=== PATIENT | male | born 1960 | race Caucasian/White ===

== ENCOUNTER 2021-09-02 12:40 | Emergency (ER) | payer OTHER ==
[2021-09-02 14:18] LABS: HEMOGLOBIN 14.7 gm/dl (14.0-17.5); RED BLOOD COUNT 4.73 M/UL (4.20-5.50); WHITE BLOOD COUNT 8.7 K/UL (4.5-11.0)
[2021-09-02 14:42] LABS: BUN/CREATININE RATIO 10 (0-10)
[2021-09-02] MEDS ORDERED: ONDANSETRON ODT4 MG SL (17:32)
== END 2021-09-02 17:45 | disposition home or self-care (01) ==
LOC: ER1 12:40
PROVIDERS: Physician Assistant
DX: K42.9 Umbilical hernia without obstruction or gangrene (principal); E78.5 Hyperlipidemia, unspecified; I10 Essential (primary) hypertension
CPT/HCPCS: 80053; 81001; 83690; 85025; 99284; J7030; Q9967

== ENCOUNTER 2021-09-24 12:42 | Emergency (ER) | payer OTHER ==
[~2021-09-24 12:42] MED LIST: ONDANSETRON ODT4 MG SL
== END 2021-09-24 14:36 | disposition left against medical advice (07) ==
LOC: ER1 12:42
DX: R10.9 Unspecified abdominal pain (principal); R11.2 Nausea with vomiting, unspecified; I11.9 Hypertensive heart disease without heart failure; I25.2 Old myocardial infarction; E78.5 Hyperlipidemia, unspecified; Z87.442 Personal history of urinary calculi; Z88.6 Allergy status to analgesic agent
CPT/HCPCS: 99282